=== PATIENT | male | born 1990 | race Two or more races ===

== ENCOUNTER 2020-03-07 20:45 | Emergency (ER) | payer MEDICAID ==
[~2020-03-07] VITALS: Ht 160 cm; Wt 103.4 kg
[2020-03-07] MEDS ORDERED: ACETAMINOPHEN/CODEINE#3 (300/30mg) TAB PO ONE (21:45)
[2020-03-07 22:07] VITALS: BP 144/78
[2020-03-07] MEDS ORDERED: cefTRIAXone SOD 1,000 MG VL IM ONE (22:15)
[2020-03-07] MEDS ORDERED: TETANUS-DIPTH-ACEL PERTUSSIS 0.5ML SYR Tdap IM ONE (22:15)
== END 2020-03-08 01:43 | disposition home or self-care (01) ==
LOC: ER 20:45
DX: S61.112A Laceration without foreign body of left thumb with damage to nail, initial encounter (principal); W26.8XXA Contact with other sharp object(s), not elsewhere classified, initial encounter; Y93.89 Activity, other specified; Y92.89 Other specified places as the place of occurrence of the external cause; Y99.8 Other external cause status
CPT/HCPCS: 90471; 90715; 96372; 99284; J0696